=== PATIENT | female | born 1965 | race Caucasian/White ===

== ENCOUNTER 2016-11-09 11:53 | Emergency (ER) | payer SELFPAY ==
[2016-11-09 13:27] VITALS: BP 182/105
--- NOTE | 2016-11-09 14:04 | UC ---
Dental HPI - HPI Summary HPI Summary: ONSET OF RIGHT LOWER JAW SWELLING AND PAIN YESTERDAY. HAS VERY POOR DENTITION. DOES NOT HAVE A DENTIST AND DOES NOT HAVE INSURANCE. NO FEVER. - History of Current Complaint Chief Complaint: UCDentalProblem Stated Complaint: DENTAL PAIN Time Seen by Provider: 11/09/16 13:56 Hx Obtained From: Patient Hx Last Menstrual Period: MENOPAUSE Onset/Duration: Gradual Onset, Lasting Days, Still Present Severity: Moderate Pain Intensity: 8 Pain Scale Used: 0-10 Numeric Aggravating: Heat, Cold, Chewing Alleviating: Nothing Related History: Previous Dental Care on Same Tooth, Swelling - Allergies/Home Medications Allergies/Adverse Reactions: Allergies Allergy/AdvReac Type Severity Reaction Status Date / Time Morphine Allergy Severe Rash Verified 09/13/16 09:55 Meperidine [From Demerol HCl] AdvReac Severe Vomiting Verified 09/13/16 09:55 ALL "MINE" DRUGS Allergy Severe SEIZURE Uncoded 09/13/16 09:55 PMH/Surg Hx/FS Hx/Imm Hx Previously Healthy: Yes Endocrine History Of: Denies: Diabetes, Thyroid Disease Cardiovascular History Of: Denies: Cardiac Disorders, Hypertension Respiratory History Of: Denies: COPD, Asthma GI/ History Of: Denies: Ulcer - Surgical History Surgical History: Yes Surgery Procedure, Year, and Place: [facility] - Family History Known Family History: Positive: Hypertension - Social History Alcohol Use: Weekly Substance Use Type: None Smoking Status (MU): Heavy Every Day Tobacco Smoker Type: Cigarettes Review of Systems Constitutional: Negative ENT: Dental Pain Respiratory: Negative Cardiovascular: Negative Gastrointestinal: Negative All Other Systems Reviewed And Are Negative: Yes Physical Exam Triage Information Reviewed: Yes Appearance: Well-Appearing, Well-Nourished, Pain Distress - MODERATE Vital Signs: Initial Vital Signs Temp 98.6 F 11/09/16 13:23 Pulse 86 11/09/16 13:23 Resp 18 11/09/16 13:23 BP 182/105 11/09/16 13:23 Pulse Ox 98 11/09/16 13:23 Vital Signs Reviewed: Yes Eyes: Positive: Conjunctiva Clear ENT: Positive: Hearing grossly normal, TMs normal Dental: Positive: Percussion Tenderness @, Gross Decay/Caries @, Other: - VERY POOR DENTITION DIFFUSELY WITH DECAY, CARIES AND DENTAL APPARATUS. Neck: Positive: Supple, Tenderness @ - SPFL CERVICAL LAD, Enlarged Nodes @ - SPFL CERVICAL LAD, Other: - VISIBLE SOFT TISSUE SWELLING RIGHT LOWER JAW Respiratory: Positive: No respiratory distress, No accessory muscle use Cardiovascular: Positive: Pulses Normal Abdomen Description: Positive: Soft Musculoskeletal: Positive: No Edema Neurological: Positive: Alert Psychological: Positive: Age Appropriate Behavior Skin: Negative: rashes Dental Complaint Course/Dx - Differential Dx/Diagnosis Provider Diagnoses: DENTAL ABSCESS/CARIES Discharge - Discharge Plan Condition: Stable Disposition: HOME Prescriptions: Amoxicillin/Clavulanate TAB* [Augmentin TAB 875*] 875 mg PO BID #20 tab Chlorhexidine MW 0.12% 473ML* [Peridex Mouth Wash 0.12%*] 15 ml SWISH SPIT BID # 1 bottle Hydrocodone-Acetaminophen [Lorcet 5-325 mg] 1 tab PO QID PRN #20 tab MDD 4 PRN Reason: Pain Naproxen [Naproxen EC] 500 mg PO BID PRN #30 tab PRN Reason: Pain Patient Education Materials: Dental Abscess (ED), Toothache (ED) Referrals: No Primary Care Phys,NOPCP [Primary Care Provider] - Additional Instructions: LIST OF DENTAL PROVIDERS GIVEN TODAY. PLEASE CALL [facility] FOR A FOLLOW-UP APPT. YOUR BLOOD PRESSURE WAS ELEVATED TODAY. PLEASE CALL THE NUMBER BELOW TO HELP YOU FIND A PCP THIS MUST BE ADDRESSED. GO TO THE ER WITHOUT FAIL IF YOU DEVELOP CHEST PAIN, SHORTNESS OF BREATH, DIZZINESS, VISUAL DISTURBANCES OR ANY OTHER CONCERNING SYMPTOMS. CALL THE NUMBER BELOW FOR ASSISTANCE IN ESTABLISHING WITH A PCP An additional resource available to assist in finding the appropriate physician for your health care needs is the [facility] ([facility]). You may contact them by calling [phone]. [address] [phone] [email or web address] WALK IN HOURS SATURDAY 2P-6P SATURDAY 4P-8P
== END 2016-11-09 14:20 | disposition home or self-care (01) ==
LOC: UCEAST 11:53
DX: K04.7 Periapical abscess without sinus (principal); K02.9 Dental caries, unspecified; Z88.6 Allergy status to analgesic agent; F17.210 Nicotine dependence, cigarettes, uncomplicated
CPT/HCPCS: 99212; G0463

== ENCOUNTER 2017-03-25 10:40 | Emergency (ER) | payer SELFPAY ==
[2017-03-25 11:30] VITALS: BP 154/99
[2017-03-25] MEDS ORDERED: Naproxen TAB* 250 MG PO ONE (12:58)
--- NOTE | 2017-03-25 13:59 | RAD ---
INDICATION: Right elbow injury COMPARISON: None TECHNIQUE: AP, lateral, and oblique views were obtained. FINDINGS: The bony structures, joint spaces, and soft tissues about the elbow are normal for age. There is soft tissue swelling about the forearm. IMPRESSION: NO ACUTE ELBOW ABNORMALITIES..
--- NOTE | 2017-03-25 14:00 | RAD ---
INDICATION: Right forearm injury COMPARISON: None TECHNIQUE: AP and lateral views were obtained. FINDINGS: There is no acute fracture. There is soft tissue swelling about the radial and dorsal aspect of the forearm. There is no foreign body.. IMPRESSION: DIFFUSE SOFT TISSUE SWELLING.
--- NOTE | 2017-03-25 14:01 | RAD ---
INDICATION: Right lower extremity injury COMPARISON: None TECHNIQUE: AP and lateral views were obtained. FINDINGS: The bony structures, joint spaces, and soft tissues are normal for age. IMPRESSION: NEGATIVE EXAMINATION.
--- NOTE | 2017-03-25 14:03 | RAD ---
INDICATION: Fall. Right foot injury COMPARISON: None TECHNIQUE: AP, lateral, and oblique views were obtained. FINDINGS: The bony structures, joint spaces, and soft tissues are normal for age. IMPRESSION: NO ACUTE BONY FINDINGS.
--- NOTE | 2017-03-25 14:03 | RAD ---
INDICATION: Fall. Neck pain. COMPARISON: None TECHNIQUE: Routine five-view imaging was performed FINDINGS: Bones: There are no acute bony findings. There are no significant osteoarthritic findings. Craniocervical junction: The odontoid and atlantodental interval are normal. Alignment: Normal Disc spaces: The disc spaces are well-maintained Soft tissues: The prevertebral soft tissues are normal. IMPRESSION: NEGATIVE EXAMINATION.
--- NOTE | 2017-03-25 14:29 | ED ---
Adult Trauma - HPI Summary HPI Summary: Pt here w/ fall down 12 stairs last night - tripped over cat and went head first down stairs. Landed on Rt side and has Rt forearm pain, bruising and swelling today - worse w/ movement but can use arm to push herself up off of seat. Moving wrist, fingers and shoulder well. Also reports Rt LE pain w/ bruising, scrapes and swelling over front of merlos and top of foot - pain worse w / weight bearing but was able to ambulate here today and this was not a complaint she was going to share -simply came up throughout HPI. Denies hitting her head, LOC, GALVAN, change in vision, nausea, vomiting, photophobia, phonophobia , confusion, numbness, tingling, weakness. Denies neck pain, shoulder pain, chest pain, ab pain, pelvic pain. She is sore to touch over Rt SI joint but reports this is only slightly worse from her baseline pain here. Takes aleve at home for pain. Tried icing Rt arm w/o relief of swelling, bruising, pain. Imms are UTD. - History of Current Complaint Chief Complaint: UCUpperExtremity Stated Complaint: ARM INJURY Time Seen by Provider: 03/25/17 12:46 Hx Obtained From: Patient - Allergy/Home Medications Allergies/Adverse Reactions: Allergies Allergy/AdvReac Type Severity Reaction Status Date / Time Morphine Allergy Severe Rash Verified 09/13/16 09:55 Meperidine [From Demerol HCl] AdvReac Severe Vomiting Verified 09/13/16 09:55 ALL "MINE" DRUGS Allergy Severe SEIZURE Uncoded 09/13/16 09:55 PMH/Surg Hx/FS Hx/Imm Hx Previously Healthy: Yes Endocrine/Hematology History: Denies: Hx Anticoagulant Therapy, Hx Blood Disorders, Hx Diabetes, Hx Thyroid Disease Cardiovascular History: Denies: Hx Hypertension Respiratory History: Denies: Hx Asthma, Hx Chronic Obstructive Pulmonary Disease (COPD) GI History: Denies: Hx Ulcer Musculoskeletal History: Reports: Hx Back Problems - Rt SI joint Denies: Hx Osteoporosis - Surgical History Surgery Procedure, Year, and Place: C[facility] Infectious Disease History: No Infectious Disease History: Denies: Hx Clostridium Difficile, Hx Hepatitis, Hx Human Immunodeficiency Virus (HIV), Hx of Known/Suspected MRSA, Hx Shingles, Hx Tuberculosis, Hx Known/ Suspected VRE, Hx Known/Suspected VRSA, History Other Infectious Disease, Traveled Outside the [place] in Last 30 Days - Family History Known Family History: Positive: Hypertension - Social History Alcohol Use: Weekly Hx Substance Use: No Substance Use Type: Reports: None Hx Tobacco Use: Yes Smoking Status (MU): Current Every Day Smoker Type: Cigarettes Review of Systems Constitutional: Negative Eyes: Negative Negative: Photophobia, Blurred Vision, Diplopia ENT: Negative Negative: Dental Pain Cardiovascular: Negative Respiratory: Negative Negative: Shortness Of Breath Gastrointestinal: Negative Negative: Abdominal Pain, Vomiting, Nausea Positive: no symptoms reported. Negative: incontinence Musculoskeletal: Other - see HPI Positive: Bruising - see HPI Neurological: Negative Psychological: Normal All Other Systems Reviewed And Are Negative: Yes Physical Exam Triage Information Reviewed: Yes Vital Signs On Initial Exam: Initial Vitals Temp Pulse Resp BP Pulse Ox 97.8 F 94 17 154/99 99 03/25/17 11:26 03/25/17 11:26 03/25/17 11:26 03/25/17 11:26 03/25/17 11:26 Vital Signs Reviewed: Yes Appearance: Positive: Well-Appearing, Well-Nourished, Pain Distress - mild Skin: Positive: Warm, Dry - edema and ecchymosis over Rt forearm; scabbed abrasion over edema/ecchymosis of Rt anterior tibia region; superficial abrasion of skin over Rt patella; superficial abrasion w/ edema/ecchymosis over Rt dorsal/lateral foot Head/Face: Positive: Normal Head/Face Inspection - NTTP, no gross deformity Eyes: Positive: Normal, EOMI, ED, Conjunctiva Clear ENT: Positive: Hearing grossly normal, TMs normal - no hemotympanum Dental: Negative: Dental Fracture @ Neck: Positive: Supple, Tenderness @ - C7/T1 spinous pp w/ TTP Respiratory/Lung Sounds: Positive: Clear to Auscultation, Breath Sounds Present , Other - no pain w/ deep inspiration; NTTP. Negative: Decreased Breath Sounds , Rales, Rhonchi, Subcutaneous Emphysema, Stridor, Tracheal Deviation Cardiovascular: Positive: Normal, RRR, Pulses are Symmetrical in both Upper and Lower Extremities Abdomen Description: Positive: Nontender, Soft Bowel Sounds: Positive: Present Musculoskeletal: Positive: Strength/ROM Intact, Limited @ - Rt elbow, Pain @ - Rt forearm, Rt knee, Rt tibia, Rt foot, Rt SI joint, C7/T1 spinous pp all TTP Neurological: Positive: Normal, Sensory/Motor Intact, Alert, Oriented to Person Place, Time, CN Intact II-III Psychiatric: Positive: Normal Diagnostics - Vital Signs Vital Signs Temp Pulse Resp BP Pulse Ox 03/25/17 11:26 97.8 F 94 17 154/99 99 - Laboratory Lab Statement: Any lab studies that have been ordered have been reviewed, and results considered in the medical decision making process. Re-Evaluation - Re-Evaluation First Eval Change: Unchanged - Would like to try acetaminophen 650mg - does not like stronger meds - make her feel loopy Adult Trauma Course/Dx - Course Course Of Treatment: Pt here w/ fall down 12 stairs last night, landing on Rt side. Multiple areas of swelling, bruising and pain. XR's w/o fx, dislocation however she has 2 hematomas, arm > leg. No head injury or neuro deficits. Discussed course of care and importance of f/u, especially if she develop s/sx of compartment syndrome -pt agrees w/ plan. Will provide small amount of percocet as pt had trouble sleeping last night from pain. If acetaminophen and aleve and ice control pain however, she will not take these as she doesn't like feeling "loopy". Chart indicates morphine allergy which pt confirmed gave her skin swelling - she has had percocet in the past w/o reaction - has not had norco so will refrain from trying today. Advised to f/u w/ PCP and she will call to establish tomorrow. - Diagnoses Provider Diagnoses: Fall down stairs, Multiple contusions, Traumatic hematoma of right forearm, Abrasions of multiple sites Discharge - Discharge Plan Condition: Stable Disposition: HOME Prescriptions: oxyCODONE/Acetamin 5/325 MG* [Percocet 5/325 TAB*] 1 tab PO BEDTIME PRN #5 tab MDD 1 PRN Reason: Pain Patient Education Materials: Contusion in Adults (ED), Abrasion (ED), Fall Prevention (ED), Hematoma (ED) Referrals: [facility] [place] PHYSICIAN REFERRAL [Outside] No Primary Care Phys,NOPCP [Primary Care Provider] - Additional Instructions: Rest, ice and elevate arm and leg - use GORDY wraps to reduce swelling. You may continue aleve 500mg with food every 12 hours and take acetaminophen 650mg every 6 hours for pain. You may take percocet at night if pain keeps you from sleeping. Follow-up with PCP in 1-2 weeks if pain/swelling persist. Call tomorrow to schedule an appointment. *If you develop pain, numbness or discoloration in hand, remove GORDY wrap - if no change in symptoms after 20 minutes, go to ED
[2017-03-25] MEDS ORDERED: Acetaminophen TAB* 325 MG PO ONE (14:44)
[2017-03-25] MEDS ORDERED: oxyCODONE/Acetamin 5/325 MG* TAB PO ONE (14:46)
== END 2017-03-25 15:07 | disposition home or self-care (01) ==
LOC: UCEAST 10:40
DX: S50.11XA Contusion of right forearm, initial encounter (principal); S80.11XA Contusion of right lower leg, initial encounter; S80.811A Abrasion, right lower leg, initial encounter; W10.8XXA Fall (on) (from) other stairs and steps, initial encounter; Y93.9 Activity, unspecified; Y92.9 Unspecified place or not applicable; Z88.5 Allergy status to narcotic agent; F17.210 Nicotine dependence, cigarettes, uncomplicated
CPT/HCPCS: 72050; 99212; A9270-GY; G0463

== ENCOUNTER → 2017-04-08 22:43 | Emergency (ER) | payer SELFPAY ==
[2017-04-08 22:51] VITALS: BP 135/77
== END | disposition left against medical advice (07) ==
LOC: ED 22:43
DX: R22.30 Localized swelling, mass and lump, unspecified upper limb (principal); Z53.21 Procedure and treatment not carried out due to patient leaving prior to being seen by health care provider
CPT/HCPCS: 99281

== ENCOUNTER 2017-04-09 23:58 | Emergency (ER) | payer SELFPAY ==
[2017-04-10 00:06] VITALS: BP 164/94
--- NOTE | 2017-04-10 00:51 | ED ---
Upper Extremity Pain - HPI Summary HPI Summary: 51F presents with right arm pain two weeks ago s/p fell down 12 stairs. Has large hematoma to right arm that is not getting any better. Has numbness for a couple days on palmar aspect of forearm that does not radiate into hand. She also admits to right leg pain from fall. She has abrasion to right merlos with no signs of infection around it. She denies any fever. She has not set up appointment with her primary yet. She denies any tingling. She has been taking tyenlol for her pain. She has been wrapping it at night and place ice on it at night. - History of Current Complaint Chief Complaint: EDExtremityUpper Stated Complaint: RIGHT ARM PAIN/RIGHT ARM AND LEG SWOLLEN NUMB Time Seen by Provider: 04/10/17 00:23 Hx Last Menstrual Period: MENOPAUSE - Allergies/Home Medications Allergies/Adverse Reactions: Allergies Allergy/AdvReac Type Severity Reaction Status Date / Time Morphine Allergy Severe Rash Verified 04/10/17 00:46 Procaine [From Novocain] Allergy Shakes Verified 04/10/17 00:46 Meperidine [From Demerol HCl] AdvReac Severe Vomiting Verified 04/10/17 00:46 ALL "MINE" DRUGS Allergy Severe SEIZURE Uncoded 04/10/17 00:46 PMH/Surg Hx/FS Hx/Imm Hx Endocrine/Hematology History: Denies: Hx Anticoagulant Therapy, Hx Blood Disorders, Hx Diabetes, Hx Thyroid Disease Cardiovascular History: Denies: Hx Hypertension Respiratory History: Denies: Hx Asthma, Hx Chronic Obstructive Pulmonary Disease (COPD) GI History: Denies: Hx Ulcer Musculoskeletal History: Reports: Hx Back Problems - Rt SI joint Denies: Hx Osteoporosis - Surgical History Surgery Procedure, Year, and Place: [facility] Infectious Disease History: No Infectious Disease History: Denies: Hx Clostridium Difficile, Hx Hepatitis, Hx Human Immunodeficiency Virus (HIV), Hx of Known/Suspected MRSA, Hx Shingles, Hx Tuberculosis, Hx Known/ Suspected VRE, Hx Known/Suspected VRSA, History Other Infectious Disease, Traveled Outside the [place] in Last 30 Days - Family History Known Family History: Positive: Hypertension - Social History Alcohol Use: Weekly Hx Substance Use: No Substance Use Type: Reports: None Hx Tobacco Use: Yes Smoking Status (MU): Current Every Day Smoker Type: Cigarettes Review of Systems Negative: Fever Negative: Chest Pain Negative: Shortness Of Breath Positive: Myalgia - right forearm and leg, Edema - right forearm All Other Systems Reviewed And Are Negative: Yes Physical Exam Triage Information Reviewed: Yes Vital Signs On Initial Exam: Initial Vitals Temp Pulse Resp BP Pulse Ox 97.6 F 73 18 164/94 99 04/10/17 00:00 04/10/17 00:00 04/10/17 00:00 04/10/17 00:00 04/10/17 00:00 Vital Signs Reviewed: Yes Appearance: Positive: Well-Appearing Skin: Positive: Warm, Dry, Other - healing laceration to right merlos with no sign of infection, ecchymosis noted to right forearm with large area of edema present on right forearm that feels to be a hematoma Head/Face: Positive: Normal Head/Face Inspection Eyes: Positive: Normal, Conjunctiva Clear Respiratory/Lung Sounds: Positive: Clear to Auscultation, Breath Sounds Present Cardiovascular: Positive: Normal, RRR Musculoskeletal: Positive: Strength/ROM Intact - right ankle and knee, elbow, wrist, Other - good pulses, able to oppose fingers, capillary refill < 2 secs, feeling present in finger tips, Diagnostics - Vital Signs Vital Signs Temp Pulse Resp BP Pulse Ox 04/10/17 00:43 97.3 F 73 16 164/94 97 04/10/17 00:00 97.6 F 73 18 164/94 99 - Laboratory Lab Statement: Any lab studies that have been ordered have been reviewed, and results considered in the medical decision making process. Course/Dx - Course Course Of Treatment: 51F presents for reevaulation of right arm hematoma from fall. had xray two weeks ago and normal. had edema on right forearm at that time that they believed to be a hematoma. says that edema has not decreased. no fever. does not appear infected on exam. full ROM of all joints and good muscles. has numbness on opposite side of hematoma that does not radiate down areas so do not suspect compartment syndrome. told that will take time for hematoma to resolved and that needs to get primary. patient understands and agrees with plan - Diagnoses Differential Diagnosis/HQI/PQRI: Positive: Fracture (Closed), Hematoma, Strain Provider Diagnoses: right arm hematoma Discharge - Discharge Plan Condition: Good Disposition: HOME Patient Education Materials: Hematoma (ED) Referrals: [facility] [place] PH[facility]IAN REFERRAL [Outside] Additional Instructions: Place case wrap on area, massage area Place ice on area Elevate arm Take Tylenol or ibuprofen for pain Establish care with primary care physician Return to ED if develop any new or worsens symptoms
== END 2017-04-10 00:58 | disposition home or self-care (01) ==
LOC: ED 23:58
DX: S40.021A Contusion of right upper arm, initial encounter (principal); X58.XXXA Exposure to other specified factors, initial encounter; Y93.9 Activity, unspecified; Y92.9 Unspecified place or not applicable; R60.0 Localized edema; Z88.5 Allergy status to narcotic agent; Z88.4 Allergy status to anesthetic agent; F17.210 Nicotine dependence, cigarettes, uncomplicated
CPT/HCPCS: 99281

== ENCOUNTER 2021-03-08 10:50 | Inpatient (IN) ==
[2021-03-08 12:40] LABS: Albumin 3.8 g/dL (3.2-5.2); Albumin/Globulin Ratio 1.1 (1-3); Calcium 8.9 mg/dL (8.6-10.3); EGFR African American 132.8 (>60); EGFR Non-African American 109.7 (>60); Globulin 3.4 g/dL (2-4); Potassium 3.6 mmol/L (3.5-5.0); Total Bilirubin 1.6 mg/dL (0.2-1.0); Total Protein 7.2 g/dL (6.4-8.9)
[2021-03-08 13:02] LABS: ABS Basophils 0.1 10^3/ul (0-0.2); ABS Eosinophils 0.3 10^3/ul (0-0.6); ABS Lymphocytes 1.1 10^3/ul (1.0-4.8); ABS Monocytes 1.1 10^3/ul (0-0.8); ABS Neutrophils 14.2 10^3/ul (1.5-7.7); Eosinophil % 1.8 %; Hematocrit 50 % (35-47); Hemoglobin 17.3 g/dL (12.0-16.0); Lymphocyte % 6.7 %; Mean Corpuscular HGB Conc 35 g/dL (31-36); Mean Corpuscular Hemoglobin 42 pg (27-31); Mean Corpuscular Volume 121 fL (80-97); Mean Platelet Volume 9.9 fL (7.4-10.4); Nucleated Red Blood Cells % 0.2; Platelet Count 167 10^3/uL (150-450); Red Cell Distribution Width 15 % (10-15); White Blood Count 16.8 10^3/uL (3.5-10.8)
[2021-03-08 13:10] LABS: Polychromasia 1+
[2021-03-08] MEDS ORDERED: Iohexol 300 (CONTRAST) 10 ML SDV IV ONE (14:26)
[2021-03-08] MEDS: NS 0.9% 1000 ml BAG 2,000 ML IV ONE (14:38)
[2021-03-08] MEDS ORDERED: Ondansetron 4 mg VIAL 2 MG/ML 2 ml VIAL IV ONE (14:40)
[2021-03-08] MEDS ORDERED: HYDROmorphone 0.5 MG/0.5 ML SYRINGE IV ONE (14:40)
[2021-03-08 16:05] LABS: INR 1.17 (0.82-1.09)
[2021-03-08 16:06] LABS: Activated Partial Thrombo Time 26.9 seconds (26.0-38.0)
[2021-03-08] MEDS ORDERED: NS 0.9% 1000 ml BAG 1,000 ML IV ONE (17:16)
[2021-03-08] MEDS ORDERED: Pantoprazole VIAL 40 MG VIAL IV ONE (17:21)
[2021-03-08] MEDS ORDERED: Thiamine 100 MG/ML 2 ml VIAL (200 mg) IM ONE (17:37)
[2021-03-08 18:21] LABS: Urine Appearance Clear; Urine Bilirubin Negative (Negative); Urine Blood 1+ (Negative); Urine Color Yellow; Urine Glucose Negative (Negative); Urine Ketones 1+ (Negative); Urine Nitrite Negative (Negative); Urine Protein Negative (Negative); Urine Specific Gravity 1.036 (1.002-1.030); Urine Urobilinogen Negative (Negative)
[2021-03-08 18:31] LABS: Urine Bacteria Absent (Absent); Urine Red Blood Cell Trace(0-2/hpf) (Absent); Urine Squamous Epithelial Cell Present (Absent); Urine White Blood Cell Absent (Absent)
[2021-03-08] MEDS: Enoxaparin 40 MG/0.4 ML SYR SUBCUT SCH (20:12)
[2021-03-08] MEDS: HYDROmorphone 0.5 MG/0.5 ML SYRINGE IV SLOW PU PRN (20:13)
[2021-03-08] MEDS: Nicotine PATCH 21 MG/24 HR PATCH TRANSDERM SCH (20:13)
[2021-03-08] MEDS: NS 0.9% w/ 40 Meq KCL 1000 ML 1,000 ML IV SCH (20:25)
[2021-03-09] MEDS: HYDROmorphone 0.5 MG/0.5 ML SYRINGE IV SLOW PU PRN ×5 (01:07→19:54)
[2021-03-09 05:57] LABS: ABS Eosinophils 0.3 10^3/ul (0-0.6); ABS Lymphocytes 1.5 10^3/ul (1.0-4.8); ABS Monocytes 1.4 10^3/ul (0-0.8); ABS Neutrophils 14.1 10^3/ul (1.5-7.7); Eosinophil % 1.6 %; Hematocrit 43 % (35-47); Hemoglobin 14.6 g/dL (12.0-16.0); Lymphocyte % 8.4 %; Mean Corpuscular HGB Conc 34 g/dL (31-36); Mean Corpuscular Hemoglobin 42 pg (27-31); Mean Corpuscular Volume 124 fL (80-97); Nucleated Red Blood Cells % 0.1; Platelet Count 151 10^3/uL (150-450); Red Blood Count 3.44 10^6 /uL (3.70-4.87); Red Cell Distribution Width 15 % (10-15); White Blood Count 17.3 10^3/uL (3.5-10.8)
[2021-03-09 06:07] LABS: Albumin 2.7 g/dL (3.2-5.2); C Reactive Protein 126.99 mg/L (<8.01); EGFR African American 218.6 (>60); EGFR Non-African American 180.7 (>60); Globulin 2.6 g/dL (2-4); Potassium 3.5 mmol/L (3.5-5.0); Total Bilirubin 1.2 mg/dL (0.2-1.0); Total Protein 5.3 g/dL (6.4-8.9)
[2021-03-09] MEDS ORDERED: Dextrose 50% Syringe 50 ml 25 GM/50 ML SYRINGE ONE (08:04)
[2021-03-09] MEDS: NS 0.9% w/ 40 Meq KCL 1000 ML 1,000 ML IV SCH (08:30)
[2021-03-09] MEDS: Pantoprazole VIAL 40 MG VIAL IV SCH (10:16)
[2021-03-09] MEDS: Multivitamins/Minerals TAB PO SCH (10:18)
[2021-03-09] MEDS: Nicotine PATCH 21 MG/24 HR PATCH TRANSDERM SCH (10:20)
[2021-03-09] MEDS: D5W 1/2 NS KCl 20 meq 1000 ml 1,000 ML IV SCH (12:50)
[2021-03-09] MEDS: Ondansetron 4 mg VIAL 2 MG/ML 2 ml VIAL IV PRN (19:54)
[2021-03-09] MEDS: Enoxaparin 40 MG/0.4 ML SYR SUBCUT SCH (21:54)
[2021-03-10] MEDS: HYDROmorphone 0.5 MG/0.5 ML SYRINGE IV SLOW PU PRN ×4 (01:01→20:24)
[2021-03-10] MEDS: D5W 1/2 NS KCl 20 meq 1000 ml 1,000 ML IV SCH ×2 (05:27→20:23)
[2021-03-10 06:22] LABS: Calcium 7.1 mg/dL (8.6-10.3); EGFR African American 233.1 (>60); EGFR Non-African American 192.6 (>60)
[2021-03-10 06:55] LABS: Potassium 3.4 mmol/L (3.5-5.0)
[2021-03-10] MEDS ORDERED: KCL 20 MEQ/100 ML IVPREMIX 20 MEQ/100 ML BAG IV ONE (07:15)
[2021-03-10] MEDS: Pantoprazole VIAL 40 MG VIAL IV SCH (08:44)
[2021-03-10] MEDS: Nicotine PATCH 21 MG/24 HR PATCH TRANSDERM SCH (08:50)
[2021-03-10] MEDS: Multivitamins/Minerals TAB PO SCH (09:37)
[2021-03-10] MEDS ORDERED: Magnesium Sulfate IV 3 GM in NS 0.9% 100 ml BAG 100 ML IVPB ONE (15:19)
[2021-03-10] MEDS: Enoxaparin 40 MG/0.4 ML SYR SUBCUT SCH (18:20)
[2021-03-10] MEDS ORDERED: Magnesium Hydroxide LIQ 30 ML UDC PO PRN (22:05)
[2021-03-10] MEDS: Senna TAB 8.6 mg TAB PO PRN (23:13)
[2021-03-11] MEDS: HYDROmorphone 0.5 MG/0.5 ML SYRINGE IV SLOW PU PRN ×4 (00:55→23:41)
[2021-03-11] MEDS: D5W 1/2 NS KCl 20 meq 1000 ml 1,000 ML IV SCH (05:54)
[2021-03-11 08:41] LABS: Calcium 7.4 mg/dL (8.6-10.3); EGFR African American 233.1 (>60); EGFR Non-African American 192.6 (>60); Potassium 3.4 mmol/L (3.5-5.0)
[2021-03-11] MEDS: Pantoprazole VIAL 40 MG VIAL IV SCH (09:23)
[2021-03-11] MEDS: Senna TAB 8.6 mg TAB PO PRN (09:24)
[2021-03-11] MEDS: Nicotine PATCH 21 MG/24 HR PATCH TRANSDERM SCH (09:24)
[2021-03-11] MEDS: Multivitamins/Minerals TAB PO SCH (09:24)
[2021-03-11 11:02] LABS: Magnesium 1.8 mg/dL (1.9-2.7)
[2021-03-11] MEDS: Potassium Chlor 20 meq TAB.ER PO SCH ×2 (12:37→20:49)
[2021-03-11] MEDS: Enoxaparin 40 MG/0.4 ML SYR SUBCUT SCH (18:15)
[2021-03-11] MEDS: Ondansetron 4 mg VIAL 2 MG/ML 2 ml VIAL IV PRN (22:06)
[2021-03-11] MEDS ORDERED: Ondansetron ODT 4 mg TAB 4 MG TAB PO ONE (23:30)
[2021-03-12 06:01] LABS: Calcium 7.7 mg/dL (8.6-10.3); EGFR Non-African American 199.2 (>60); Magnesium 1.7 mg/dL (1.9-2.7); Potassium 4.2 mmol/L (3.5-5.0)
[2021-03-12 06:11] LABS: ABS Basophils 0.1 10^3/ul (0-0.2); ABS Eosinophils 0.4 10^3/ul (0-0.6); ABS Lymphocytes 1.9 10^3/ul (1.0-4.8); ABS Monocytes 1.4 10^3/ul (0-0.8); ABS Neutrophils 7.9 10^3/ul (1.5-7.7); Eosinophil % 3.4 %; Hematocrit 37 % (35-47); Hemoglobin 12.5 g/dL (12.0-16.0); Lymphocyte % 16.6 %; Mean Corpuscular HGB Conc 34 g/dL (31-36); Mean Corpuscular Hemoglobin 42 pg (27-31); Mean Corpuscular Volume 124 fL (80-97); Mean Platelet Volume 9.5 fL (7.4-10.4); Nucleated Red Blood Cells % 0.1; Platelet Count 222 10^3/uL (150-450); Red Blood Count 2.99 10^6 /uL (3.70-4.87); Red Cell Distribution Width 15 % (10-15); White Blood Count 11.8 10^3/uL (3.5-10.8)
[2021-03-12] MEDS: Multivitamins/Minerals TAB PO SCH (09:13)
[2021-03-12] MEDS: Potassium Chlor 20 meq TAB.ER PO SCH (09:13)
[2021-03-12] MEDS: Nicotine PATCH 21 MG/24 HR PATCH TRANSDERM SCH (09:13)
[2021-03-12] MEDS: Pantoprazole VIAL 40 MG VIAL IV SCH (09:13)
[2021-03-12] MEDS ORDERED: Magnesium Sulfate 2 gm BAG 2 GM/50 ML BAG IVPB ONE (09:13)
[2021-03-12] MEDS: HYDROmorphone 0.5 MG/0.5 ML SYRINGE IV SLOW PU PRN (09:37)
[2021-03-12] MEDS ORDERED: Polyethylene Glycol 3350 17 GM PACKET PO SCH (10:00)
[2021-03-12 15:50] VITALS: BP 112/67
[2021-03-12] MEDS ORDERED: Senna TAB 8.6 mg TAB PO SCH (21:00)
[2021-03-14 21:07] LABS: Phospholipid Ab IgG < 9.4 GPL
[2021-03-18 19:05] LABS: FACV Specimen Whole Blood
== END 2021-03-12 16:55 | disposition home or self-care (01) | DRG 439 ==
LOC: ED 10:50 → MEDTELE 10:50
PROVIDERS: ADMIT Internal Medicine; ATTEND Hospitalist

== ENCOUNTER 2021-10-29 08:21 | Inpatient (IN) ==
[2021-10-29] MEDS ORDERED: Lactated Ringers 1000 ml BAG 1,000 ML IV SCH (09:00)
[2021-10-29] MEDS ORDERED: HYDROmorphone 0.5 MG/0.5 ML SYRINGE IV ONE ×2 (09:05→12:48)
[2021-10-29] MEDS ORDERED: Lactated Ringers 1000 ml BAG 1,000 ML IV ONE ×2 (09:06→09:20)
[2021-10-29] MEDS ORDERED: Ondansetron 4 mg VIAL 2 MG/ML 2 ml VIAL IV ONE (09:06)
[2021-10-29 09:41] LABS: ABS Basophils 0.1 10^3/ul (0-0.2); ABS Eosinophils 0.1 10^3/ul (0-0.6); ABS Lymphocytes 1.7 10^3/ul (1.0-4.8); ABS Neutrophils 11.9 10^3/ul (1.5-7.7); Eosinophil % 0.8 %; Hematocrit 44 % (35-47); Hemoglobin 15.3 g/dL (12.0-16.0); Lymphocyte % 11.4 %; Mean Corpuscular HGB Conc 35 g/dL (31-36); Mean Corpuscular Hemoglobin 40 pg (27-31); Mean Corpuscular Volume 114 fL (80-97); Mean Platelet Volume 8.8 fL (7.4-10.4); Platelet Count 306 10^3/uL (150-450); Red Blood Count 3.85 10^6 /uL (3.70-4.87); Red Cell Distribution Width 16 % (10-15); White Blood Count 14.7 10^3/uL (3.5-10.8)
[2021-10-29 09:56] LABS: ALT 8 U/L (7-52); AST 21 U/L (13-39); Albumin 4.6 g/dL (3.2-5.2); Albumin/Globulin Ratio 1.3 (1-3); Alkaline Phosphatase 117 U/L (35-149); Anion Gap 11 mmol/L (2-11); Blood Urea Nitrogen 20 mg/dL (6-24); CO2 Carbon Dioxide 25 mmol/L (22-32); Calcium 10.6 mg/dL (8.6-10.3); Chloride 98 mmol/L (101-111); Globulin 3.6 g/dL (2-4); Glucose 130 mg/dL (70-100); Indirect Bilirubin 0.8 mg/dL (0.3-1.0); Lipase 167 U/L (11.0-82.0); Magnesium 1.1 mg/dL (1.9-2.7); Potassium 4.2 mmol/L (3.5-5.0); Sodium 134 mmol/L (135-145); Total Protein 8.2 g/dL (6.4-8.9); eGFR CKD-EPI 104.5 (>60)
[2021-10-29 09:57] LABS: Troponin I 0.01 ng/mL (<0.03)
[2021-10-29] MEDS ORDERED: Magnesium Sulf 4 GM/100 ML IV 4,000 MG/100 ML BAG IVPB ONE (09:57)
[2021-10-29 10:42] LABS: Alcohol, S < 13 mg/dL (<13); LDH 166 U/L (140-271)
[2021-10-29] MEDS ORDERED: Iohexol 300 (CONTRAST) 10 ML SDV IV ONE (10:49)
[2021-10-29 12:00] LABS: Urine Appearance Clear; Urine Bilirubin Negative (Negative); Urine Blood Negative (Negative); Urine Color Colorless; Urine Glucose Negative (Negative); Urine Ketones Negative (Negative); Urine Nitrite Negative (Negative); Urine Protein Negative (Negative); Urine Specific Gravity 1.015 (1.002-1.030); Urine Urobilinogen Negative (Negative)
[2021-10-29 14:49] LABS: C Reactive Protein 10.32 mg/L (<8.01)
[2021-10-29] MEDS ORDERED: Ondansetron 4 mg VIAL 2 MG/ML 2 ml VIAL IV PRN (15:49)
[2021-10-29] MEDS: NS 0.9% 1000 ml BAG 1,000 ML IV SCH (17:52)
[2021-10-29] MEDS: HYDROmorphone 0.5 MG/0.5 ML SYRINGE IV SLOW PU PRN (19:55)
[2021-10-30] MEDS: NS 0.9% 1000 ml BAG 1,000 ML IV SCH ×2 (03:59→14:12)
[2021-10-30] MEDS: HYDROmorphone 0.5 MG/0.5 ML SYRINGE IV SLOW PU PRN ×3 (04:03→21:35)
[2021-10-30 06:12] LABS: ABS Basophils 0.1 10^3/ul (0-0.2); ABS Eosinophils 0.5 10^3/ul (0-0.6); ABS Lymphocytes 2.6 10^3/ul (1.0-4.8); ABS Monocytes 0.7 10^3/ul (0-0.8); ABS Neutrophils 4.8 10^3/ul (1.5-7.7); Eosinophil % 5.9 %; Hematocrit 36 % (35-47); Hemoglobin 12.4 g/dL (12.0-16.0); Lymphocyte % 30.1 %; Mean Corpuscular HGB Conc 34 g/dL (31-36); Mean Corpuscular Hemoglobin 40 pg (27-31); Mean Corpuscular Volume 115 fL (80-97); Mean Platelet Volume 8.6 fL (7.4-10.4); Nucleated Red Blood Cells % 0.1; Platelet Count 237 10^3/uL (150-450); Red Blood Count 3.13 10^6 /uL (3.70-4.87); Red Cell Distribution Width 16 % (10-15); White Blood Count 8.7 10^3/uL (3.5-10.8)
[2021-10-30 06:31] LABS: Calcium 9.1 mg/dL (8.6-10.3); Magnesium 1.6 mg/dL (1.9-2.7); eGFR CKD-EPI 107.5 (>60)
[2021-10-30 07:06] LABS: Potassium 4.3 mmol/L (3.5-5.0)
[2021-10-30] MEDS ORDERED: Magnesium Sulfate 2 gm BAG 2 GM/50 ML BAG IVPB ONE (09:19)
[2021-10-31] MEDS: NS 0.9% 1000 ml BAG 1,000 ML IV SCH ×2 (00:14→13:39)
[2021-10-31 06:39] LABS: Calcium 8.7 mg/dL (8.6-10.3); Magnesium 1.5 mg/dL (1.9-2.7); Potassium 3.7 mmol/L (3.5-5.0)
[2021-10-31] MEDS ORDERED: Magnesium Sulfate 2 gm BAG 2 GM/50 ML BAG IVPB ONE (10:56)
[2021-10-31] MEDS: HYDROmorphone 0.5 MG/0.5 ML SYRINGE IV SLOW PU PRN (22:29)
[2021-11-01 11:34] VITALS: BP 122/82
== END 2021-11-01 12:35 | disposition home or self-care (01) | DRG 439 ==
LOC: ED 08:21 → EDHOLD 08:21 → SUATTDRO 16:07 → SSU 17:11
PROVIDERS: ADMIT Nurse Practitioner; ATTEND Hospitalist

== ENCOUNTER 2023-06-22 14:31 | Inpatient (IN) ==
[2023-06-22] MEDS ORDERED: Lactated Ringers 1000 ml BAG 1,000 ML IV ONE (15:08)
[2023-06-22] MEDS ORDERED: Thiamine 100 MG/ML 2 ml VIAL 100 MG, Folic Acid IV 1 MG, Multiple Vitamin IV ADULT 10 M... IV ONE (15:09)
[2023-06-22] MEDS ORDERED: HYDROmorphone 0.5 MG/0.5 ML SYRINGE IV SLOW PU ONE (15:12)
[2023-06-22] MEDS ORDERED: Pantoprazole VIAL 40 MG VIAL IV ONE (15:13)
[2023-06-22] MEDS ORDERED: Ondansetron 4 mg VIAL 2 MG/ML 2 ml VIAL IV ONE (15:51)
[2023-06-22 16:07] LABS: INR 0.95 (0.83-1.13)
[2023-06-22 16:23] LABS: ALT 11 U/L (7-52); Albumin 4.8 g/dL (3.2-5.2); Albumin/Globulin Ratio 1.4 (1-3); Alkaline Phosphatase 81 U/L (35-149); Blood Urea Nitrogen 15 mg/dL (6-24); CO2 Carbon Dioxide 27 mmol/L (22-32); Calcium 9.6 mg/dL (8.6-10.3); Chloride 101 mmol/L (101-111); Creatinine, Serum 0.61 mg/dL (0.51-0.95); Globulin 3.5 g/dL (2-4); Glucose 120 mg/dL (70-100); Sodium 138 mmol/L (135-145); Total Protein 8.3 g/dL (6.4-8.9); eGFR CKD-EPI 103.6 (>60)
[2023-06-22 16:27] LABS: High Sens Troponin Baseline 4 pg/mL (<15)
[2023-06-22 16:29] LABS: Anion Gap 10 mmol/L (2-16)
[2023-06-22 16:47] LABS: ABS Basophils 0.1 10^3/uL (0.0-0.1); ABS Lymphocytes 1.3 10^3/uL (1.0-4.8); ABS Monocytes 0.4 10^3/uL (0.0-0.9); ABS Neutrophils 13.1 10^3/uL (1.5-7.6); ABS Nucleated RBC 0.02 10^3/ul; Eosinophil % 0.2 %; Hematocrit 40.8 % (35-45); Hemoglobin 13.4 g/dL (11.5-14.3); Mean Corpuscular Hemoglobin 31.7 pg (27-33); Mean Corpuscular Hgb Conc 32.8 g/dL (31-36); Mean Corpuscular Volume 96.7 fL (80-97); Mean Platelet Volume 9.6 fL (7.5-11.2); Nucleated Red Blood Cells % 0.1 /100 WBC (0.0-0.4); Platelet Count 299 10^3/uL (150-450); Red Blood Count 4.22 10^6/uL (3.63-4.92); Red Cell Distribution Width 21.9 % (12-17)
[2023-06-22 16:49] LABS: Alcohol, S < 13 mg/dL (<13)
[2023-06-22] MEDS ORDERED: Iohexol 350 (CONTRAST) 500 ML MDV IV ONE (16:50)
[2023-06-22 18:07] LABS: Lipase 1711 U/L (11.0-82.0)
[2023-06-22] MEDS ORDERED: HYDROmorphone 0.5 MG/0.5 ML SYRINGE IV ONE (18:15)
[2023-06-22] MEDS ORDERED: Labetalol IV 5 MG/ML 20 ml VIAL IV PUSH ONE (18:18)
[2023-06-22 18:24] LABS: Potassium Redraw 4.8 mmol/L (3.5-5.0)
[2023-06-22 19:09] LABS: High Sensitivity Troponin 1 Hr 3 pg/mL (<15)
[2023-06-22 19:13] LABS: Urine Appearance Clear; Urine Bilirubin Negative (Negative); Urine Blood Negative (Negative); Urine Color Yellow; Urine Glucose Negative (Negative); Urine Ketones 1+ (Negative); Urine Nitrite Negative (Negative); Urine Protein 1+(30 mg/dL) (Negative); Urine Urobilinogen Negative (Negative)
[2023-06-22 19:22] LABS: Urine Bacteria Absent (Absent); Urine Red Blood Cell Trace(0-2/hpf) (Absent); Urine Squamous Epithelial Cell Present (Absent); Urine White Blood Cell Trace(0-5/hpf) (Absent)
[2023-06-22 19:53] LABS: Urine Specific Gravity > 1.060 (1.002-1.030)
[2023-06-22] MEDS ORDERED: Ondansetron 4 mg VIAL 2 MG/ML 2 ml VIAL IV PRN (21:58)
[2023-06-22] MEDS ORDERED: NS 0.9% 1000 ml BAG 1,000 ML IV SCH (22:00)
[2023-06-22] MEDS ORDERED: Magnesium Sulfate IV 3 GM in NS 0.9% 100 ml BAG 100 ML IVPB ONE (22:11)
[2023-06-22] MEDS ORDERED: Lorazepam PYXIS KEY PRN (22:11)
[2023-06-22] MEDS: HYDROmorphone 0.5 MG/0.5 ML SYRINGE IV PRN (22:16)
[2023-06-22] MEDS ORDERED: LORazepam 2 mg VIAL 1 ml IV PUSH SCH (23:00)
[2023-06-23] MEDS: HYDROmorphone 0.5 MG/0.5 ML SYRINGE IV PRN ×3 (04:16→20:26)
[2023-06-23] MEDS: Lactated Ringers 1000 ml BAG 1,000 ML IV SCH ×3 (10:16→23:22)
[2023-06-23 10:29] LABS: ABS Eosinophils 0.3 10^3/uL (0.0-0.5); ABS Lymphocytes 2.1 10^3/uL (1.0-4.8); ABS Monocytes 0.7 10^3/uL (0.0-0.9); ABS Neutrophils 8.7 10^3/uL (1.5-7.6); ABS Nucleated RBC 0.01 10^3/ul; Eosinophil % 2.5 %; Hematocrit 37.1 % (35-45); Hemoglobin 11.9 g/dL (11.5-14.3); Lymphocyte % 17.7 %; Mean Corpuscular Hemoglobin 31.3 pg (27-33); Mean Corpuscular Hgb Conc 32.2 g/dL (31-36); Mean Corpuscular Volume 97.4 fL (80-97); Mean Platelet Volume 8.8 fL (7.5-11.2); Nucleated Red Blood Cells % 0.1 /100 WBC (0.0-0.4); Platelet Count 225 10^3/uL (150-450); Red Blood Count 3.81 10^6/uL (3.63-4.92); Red Cell Distribution Width 21.2 % (12-17); White Blood Count 11.9 10^3/uL (3.8-11.8)
[2023-06-23 10:47] LABS: C Reactive Protein 10.79 mg/L (<8.01); Calcium 8.4 mg/dL (8.6-10.3); Creatinine, Serum 0.55 mg/dL (0.51-0.95); Magnesium 1.8 mg/dL (1.9-2.7); Potassium 4.3 mmol/L (3.5-5.0); eGFR CKD-EPI 106.2 (>60)
[2023-06-24] MEDS: Lactated Ringers 1000 ml BAG 1,000 ML IV SCH ×3 (05:56→14:03)
[2023-06-24 06:26] LABS: ABS Basophils 0.1 10^3/uL (0.0-0.1); ABS Eosinophils 0.6 10^3/uL (0.0-0.5); ABS Monocytes 0.9 10^3/uL (0.0-0.9); ABS Neutrophils 6.8 10^3/uL (1.5-7.6); ABS Nucleated RBC 0.01 10^3/ul; Eosinophil % 6.2 %; Hematocrit 32.4 % (35-45); Hemoglobin 10.9 g/dL (11.5-14.3); Lymphocyte % 19.6 %; Mean Corpuscular Hemoglobin 32.3 pg (27-33); Mean Corpuscular Hgb Conc 33.5 g/dL (31-36); Mean Corpuscular Volume 96.4 fL (80-97); Mean Platelet Volume 8.5 fL (7.5-11.2); Nucleated Red Blood Cells % 0.1 /100 WBC (0.0-0.4); Platelet Count 208 10^3/uL (150-450); Red Blood Count 3.36 10^6/uL (3.63-4.92); Red Cell Distribution Width 21.1 % (12-17); White Blood Count 10.4 10^3/uL (3.8-11.8)
[2023-06-24 06:41] LABS: Albumin 3.2 g/dL (3.2-5.2); Albumin/Globulin Ratio 1.4 (1-3); Calcium 8.5 mg/dL (8.6-10.3); Creatinine, Serum 0.49 mg/dL (0.51-0.95); Globulin 2.3 g/dL (2-4); Magnesium 1.2 mg/dL (1.9-2.7); Potassium 3.4 mmol/L (3.5-5.0); Total Bilirubin 0.6 mg/dL (0.2-1.0); Total Protein 5.5 g/dL (6.4-8.9); eGFR CKD-EPI 109.2 (>60)
[2023-06-24] MEDS ORDERED: Magnesium Sulf 4 GM/100 ML IV 4,000 MG/100 ML BAG IVPB ONE (07:27)
[2023-06-24] MEDS: HYDROmorphone 0.5 MG/0.5 ML SYRINGE IV PRN ×2 (09:39→19:14)
[2023-06-25] MEDS: Lactated Ringers 1000 ml BAG 1,000 ML IV SCH (01:16)
[2023-06-25 06:14] LABS: ABS Eosinophils 0.8 10^3/uL (0.0-0.5); ABS Lymphocytes 2.2 10^3/uL (1.0-4.8); ABS Monocytes 0.8 10^3/uL (0.0-0.9); ABS Nucleated RBC 0.02 10^3/ul; Eosinophil % 8.1 %; Hematocrit 31.9 % (35-45); Hemoglobin 10.7 g/dL (11.5-14.3); Lymphocyte % 22.5 %; Mean Corpuscular Hemoglobin 32.4 pg (27-33); Mean Corpuscular Hgb Conc 33.6 g/dL (31-36); Mean Corpuscular Volume 96.4 fL (80-97); Mean Platelet Volume 8.6 fL (7.5-11.2); Nucleated Red Blood Cells % 0.2 /100 WBC (0.0-0.4); Platelet Count 215 10^3/uL (150-450); Red Blood Count 3.31 10^6/uL (3.63-4.92); Red Cell Distribution Width 20.8 % (12-17); White Blood Count 9.9 10^3/uL (3.8-11.8)
[2023-06-25 06:29] LABS: Calcium 8.4 mg/dL (8.6-10.3); Creatinine, Serum 0.47 mg/dL (0.51-0.95); Magnesium 1.4 mg/dL (1.9-2.7); Potassium 3.2 mmol/L (3.5-5.0); eGFR CKD-EPI 110.3 (>60)
[2023-06-25] MEDS ORDERED: Lactated Ringers 1000 ml BAG 1,000 ML IV SCH (07:34)
[2023-06-25] MEDS ORDERED: Magnesium Sulfate IV 3 GM in NS 0.9% 100 ml BAG 100 ML IVPB ONE (09:00)
[2023-06-25] MEDS: HYDROmorphone 0.5 MG/0.5 ML SYRINGE IV PRN (09:01)
[2023-06-25 14:22] VITALS: BP 151/83
== END 2023-06-25 17:15 | disposition home or self-care (01) | DRG 438 ==
LOC: EDHOLD 14:31 → ED 14:31 → SUATTDRO 21:58 → EDHOLD 06-23 17:17 → SUATTDRO 06-23 17:30 → MED 06-23 19:57
PROVIDERS: ADMIT Student in an Organized Health Care Education/Training Program; ATTEND Internal Medicine

== ENCOUNTER 2023-07-23 19:31 | Inpatient (IN) ==
[2023-07-23] MEDS ORDERED: Prochlorperazine 5 mg/ml 2 ml VIAL (10 mg) IV ONE (21:05)
[2023-07-23] MEDS ORDERED: Lactated Ringers 1000 ml BAG 1,000 ML IV ONE (21:19)
[2023-07-23 22:04] LABS: ABS Basophils 0.1 10^3/uL (0.0-0.1); ABS Eosinophils 0.3 10^3/uL (0.0-0.5); ABS Lymphocytes 2.1 10^3/uL (1.0-4.8); ABS Monocytes 0.9 10^3/uL (0.0-0.9); ABS Neutrophils 11.1 10^3/uL (1.5-7.6); ABS Nucleated RBC 0.01 10^3/ul; Eosinophil % 2.3 %; Hematocrit 34.7 % (35-45); Hemoglobin 11.5 g/dL (11.5-14.3); Lymphocyte % 14.6 %; Mean Corpuscular Hemoglobin 30.9 pg (27-33); Mean Corpuscular Hgb Conc 33.1 g/dL (31-36); Mean Corpuscular Volume 93.2 fL (80-97); Mean Platelet Volume 8.9 fL (7.5-11.2); Platelet Count 236 10^3/uL (150-450); Red Blood Count 3.72 10^6/uL (3.63-4.92); Red Cell Distribution Width 20.6 % (12-17); White Blood Count 14.5 10^3/uL (3.8-11.8)
[2023-07-23 22:35] LABS: Albumin 4.1 g/dL (3.2-5.2); Calcium 9.4 mg/dL (8.6-10.3); Potassium 3.6 mmol/L (3.5-5.0); Total Bilirubin 0.5 mg/dL (0.2-1.0)
[2023-07-23 22:41] LABS: Albumin/Globulin Ratio 1.4 (1-3); C Reactive Protein 1.41 mg/L (<8.01); Creatinine, Serum 0.57 mg/dL (0.51-0.95); Total Protein 7.1 g/dL (6.4-8.9); eGFR CKD-EPI 105.3 (>60)
[2023-07-23] MEDS ORDERED: Iohexol 300 (CONTRAST) 10 ML SDV IV ONE (22:48)
[2023-07-23 23:03] LABS: Urine Appearance Cloudy; Urine Bilirubin Negative (Negative); Urine Blood Negative (Negative); Urine Color Straw; Urine Glucose Negative (Negative); Urine Ketones Negative (Negative); Urine Nitrite Negative (Negative); Urine Protein Negative (Negative); Urine Urobilinogen Negative (Negative)
[2023-07-24] MEDS ORDERED: Lactated Ringers 1000 ml BAG 1,000 ML IV ONE (00:12)
[2023-07-24] MEDS ORDERED: Ondansetron 4 mg VIAL 2 MG/ML 2 ml VIAL IV PRN (00:34)
[2023-07-24] MEDS ORDERED: Acetaminophen IV 1 GM/100ML 1,000 MG/100 ML BAG IV PRN (00:40)
[2023-07-24] MEDS ORDERED: Morphine 2 MG/ML SYRINGE IV PRN ×2 (00:40)
[2023-07-24] MEDS ORDERED: Lactated Ringers 1000 ml BAG 1,000 ML IV SCH (01:00)
[2023-07-24] MEDS ORDERED: hydrALAZINE 20 mg/ml 1 ML Vial IV IV SLOW PU PRN (01:23)
[2023-07-24 01:57] LABS: Magnesium 1.4 mg/dL (1.9-2.7)
[2023-07-24 02:03] LABS: Phosphorus 3.1 mg/dL (2.5-5.0)
[2023-07-24 05:17] LABS: ABS Basophils 0.1 10^3/uL (0.0-0.1); ABS Eosinophils 0.7 10^3/uL (0.0-0.5); ABS Lymphocytes 2.9 10^3/uL (1.0-4.8); ABS Neutrophils 7.4 10^3/uL (1.5-7.6); ABS Nucleated RBC 0.01 10^3/ul; Eosinophil % 6.1 %; Hematocrit 34.1 % (35-45); Hemoglobin 11.3 g/dL (11.5-14.3); Lymphocyte % 23.6 %; Mean Corpuscular Hemoglobin 30.9 pg (27-33); Mean Corpuscular Hgb Conc 33.2 g/dL (31-36); Mean Corpuscular Volume 93.2 fL (80-97); Mean Platelet Volume 8.6 fL (7.5-11.2); Nucleated Red Blood Cells % 0.1 /100 WBC (0.0-0.4); Platelet Count 242 10^3/uL (150-450); Red Blood Count 3.66 10^6/uL (3.63-4.92); Red Cell Distribution Width 20.8 % (12-17); White Blood Count 12.1 10^3/uL (3.8-11.8)
[2023-07-24 08:21] LABS: Calcium 9.3 mg/dL (8.6-10.3); Creatinine, Serum 0.53 mg/dL (0.51-0.95); HDL Cholesterol 55.8 mg/dL; Potassium 3.4 mmol/L (3.5-5.0); eGFR CKD-EPI 107.1 (>60)
[2023-07-24] MEDS ORDERED: Magnesium Sulf 4 GM/100 ML IV 4,000 MG/100 ML BAG IVPB ONE (08:45)
[2023-07-24] MEDS ORDERED: NS 0.9% 1000 ml BAG 1,000 ML IV SCH (08:45)
[2023-07-24] MEDS: D5W NS 0.9% 40Meq KCL 1000 ml 1,000 ML IV SCH ×2 (12:25→22:51)
[2023-07-24] MEDS: HYDROmorphone 0.5 MG/0.5 ML SYRINGE IV PRN ×2 (15:22→16:22)
[2023-07-24] MEDS: HYDROmorphone 1 MG/1 ML SYRINGE IV PRN (21:31)
[2023-07-24] MEDS: Lactulose 30 ml UDC PO SCH ×2 (21:32→21:36)
[2023-07-25 06:12] LABS: ABS Basophils 0.1 10^3/uL (0.0-0.1); ABS Eosinophils 0.9 10^3/uL (0.0-0.5); ABS Lymphocytes 2.3 10^3/uL (1.0-4.8); ABS Monocytes 0.6 10^3/uL (0.0-0.9); ABS Neutrophils 4.3 10^3/uL (1.5-7.6); ABS Nucleated RBC 0.01 10^3/ul; Eosinophil % 11.2 %; Hematocrit 33.1 % (35-45); Lymphocyte % 27.9 %; Mean Corpuscular Hemoglobin 31.2 pg (27-33); Mean Corpuscular Hgb Conc 33.2 g/dL (31-36); Mean Platelet Volume 8.8 fL (7.5-11.2); Nucleated Red Blood Cells % 0.1 /100 WBC (0.0-0.4); Platelet Count 233 10^3/uL (150-450); Red Blood Count 3.52 10^6/uL (3.63-4.92); White Blood Count 8.2 10^3/uL (3.8-11.8)
[2023-07-25 06:36] LABS: ALT 5 U/L (7-52); AST 14 U/L (13-39); Albumin 3.3 g/dL (3.2-5.2); Albumin/Globulin Ratio 1.3 (1-3); Alkaline Phosphatase 70 U/L (35-149); Anion Gap 4 mmol/L (2-16); Blood Urea Nitrogen 6 mg/dL (6-24); CO2 Carbon Dioxide 27 mmol/L (22-32); Calcium 8.7 mg/dL (8.6-10.3); Chloride 109 mmol/L (101-111); Creatinine, Serum 0.52 mg/dL (0.51-0.95); Globulin 2.5 g/dL (2-4); Glucose 102 mg/dL (70-100); Potassium 4.5 mmol/L (3.5-5.0); Sodium 140 mmol/L (135-145); Total Protein 5.8 g/dL (6.4-8.9); eGFR CKD-EPI 107.6 (>60)
[2023-07-25] MEDS: Pantoprazole VIAL 40 MG VIAL IV SCH (09:11)
[2023-07-25] MEDS: Lactulose 30 ml UDC PO SCH ×3 (09:11→19:53)
[2023-07-25] MEDS ORDERED: Lactated Ringers 1000 ml BAG 1,000 ML IV ONE (11:55)
[2023-07-25] MEDS: HYDROmorphone 1 MG/1 ML SYRINGE IV PRN (21:02)
[2023-07-26 07:28] LABS: ABS Basophils 0.1 10^3/uL (0.0-0.1); ABS Lymphocytes 2.5 10^3/uL (1.0-4.8); ABS Monocytes 0.8 10^3/uL (0.0-0.9); ABS Neutrophils 6.2 10^3/uL (1.5-7.6); Eosinophil % 9.8 %; Hematocrit 35.4 % (35-45); Hemoglobin 11.8 g/dL (11.5-14.3); Lymphocyte % 23.9 %; Mean Corpuscular Hemoglobin 31.1 pg (27-33); Mean Corpuscular Hgb Conc 33.2 g/dL (31-36); Mean Corpuscular Volume 93.5 fL (80-97); Mean Platelet Volume 8.7 fL (7.5-11.2); Platelet Count 266 10^3/uL (150-450); Red Blood Count 3.79 10^6/uL (3.63-4.92); Red Cell Distribution Width 20.4 % (12-17); White Blood Count 10.6 10^3/uL (3.8-11.8)
[2023-07-26 08:36] LABS: Calcium 9.5 mg/dL (8.6-10.3); Creatinine, Serum 0.61 mg/dL (0.51-0.95); Potassium 4.2 mmol/L (3.5-5.0); eGFR CKD-EPI 103.6 (>60)
[2023-07-26] MEDS: Pantoprazole VIAL 40 MG VIAL IV SCH (08:53)
[2023-07-26] MEDS: Lactulose 30 ml UDC PO SCH ×4 (08:53→21:21)
[2023-07-26] MEDS: HYDROmorphone 1 MG/1 ML SYRINGE IV PRN (21:19)
[2023-07-27] MEDS: Pantoprazole VIAL 40 MG VIAL IV SCH (08:44)
[2023-07-27] MEDS: Lactulose 30 ml UDC PO SCH (08:52)
[2023-07-27 11:16] VITALS: BP 97/72
== END 2023-07-27 12:05 | disposition home or self-care (01) | DRG 439 ==
LOC: ED 19:31 → EDHOLD 07-24 00:34 → SUATTDRO 07-24 00:34 → MEDTELE 07-24 15:58
PROVIDERS: ADMIT Internal Medicine; ATTEND Internal Medicine